=== PATIENT | female | born 1980 | race Caucasian/White ===

== ENCOUNTER 2017-08-24 08:56 | Emergency (ER) | payer SELFPAY ==
[2017-08-24] MEDS ORDERED: 0.9 % SODIUM CHLORIDE 1,000 ML IV ONE (09:04)
[2017-08-24] MEDS ORDERED: KETOROLAC TROMETHAMINE 30 MG/1ML VIAL IVP ONE (09:04)
[2017-08-24] MEDS ORDERED: NALBUPHINE HCL 10 MG/1 ML IVP ONE (09:17)
[2017-08-24 09:47] LABS: APPEARANCE,URINE CLEAR (CLEAR); COLOR,URINE RED (YELLOW)
[2017-08-24 09:48] LABS: OCCULT BLOOD,URINE 3+ (NEGATIVE); PH URINE 5.5 (5.0 - 8.0)
[2017-08-24 09:51] LABS: BASOPHILS % 0.8 (0.0-1.5); EOSINOPHILS % 3.5 % (0.0-6.8); MEAN CORPUSCULAR HEMOGLOBIN 29.4 pg (28.0-34.0); MEAN CORPUSCULAR VOLUME 90.1 fl (80.0-100.0); MONOCYTES % 4.5 % (0.0-11.0); NEUTROPHILS # 5.2 # k/uL (1.4-7.7)
[2017-08-24 10:03] LABS: eGFR (African) > 60; eGFR (Non-African) > 60
[2017-08-24] MEDS ORDERED: BUTORPHANOL TARTRATE 2 MG/ML VIAL IV ONE (11:06)
[2017-08-24] MEDS ORDERED: PHENAZOPYRIDINE HCL 200 MG TABLET PO ONE (12:06)
[2017-08-24] MEDS ORDERED: MAGNESIUM CITRATE 296 ML BOTTLE PO ONE (12:07)
--- NOTE | 2017-08-24 12:07 | ED Physician Documentation ---
Female Urogenital Problems - HISTORIAN Historian: patient - HPI Stated Complaint: flank and LLQ, RLQ pain Chief Complaint: Female Urogenital Problems Further Comments: yes (37 year old female patient presents with complaint of painful urination, bilateral flank pain and blood in urine. Patient reports symptoms started 1 week ago, today patient noticed hematuria. Rates pain 10/ 10. Patient reports she has been off her daily medications for 3 years due to no insurance.) - Associated Symptoms Urinary Symptoms: blood in urine, frequent urination, discomfort w/ urination, burning w/ urination, pain w/ urination Discharge: denies: vaginal discharge - ROS CONST: none GI/: denies: nausea, vomiting, diarrhea CVS/RESP: none EYES/ENT: none NEURO/PSYCH: none MS/SKIN/LYMPH: none - PAST HX Past History: other (bipolar) Other History: other (PTSD, migraines, arthritis, manic depression) Surgeries/Procedures: other (LEEP) Allergies/Adverse Reactions: Allergies Allergy/AdvReac Type Severity Reaction Status Date / Time acetaminophen Allergy Verified 07/06/15 09:56 [From Darvocet-N 100] codeine [Codeine] Allergy Verified 07/06/15 09:56 gabapentin Allergy Verified 07/06/15 09:56 hydrocodone bitartrate Allergy Verified 07/06/15 09:56 [From Vicodin] latex Allergy Verified 07/06/15 09:56 oxycodone HCl [From Percocet] Allergy Verified 07/06/15 09:56 propoxyphene napsylate Allergy Verified 07/06/15 09:56 [From Darvocet-N 100] sumatriptan [From Imitrex] Allergy Verified 07/06/15 09:56 sumatriptan succinate Allergy Verified 07/06/15 09:56 [From Imitrex] aspirin AdvReac Unknown BLEEDING Verified 07/06/15 09:56 ULCER SOAP Allergy Itchy Skin Uncoded 03/08/15 21:50 Home Medications: Ambulatory Orders Medication Instructions Recorded Ciprofloxacin HCl [Cipro] 500 mg PO BID #20 tablet 08/24/17 Phenazopyridine HCl 200 mg PO TID #6 tablet 08/24/17 Promethazine HCl [Phenergan] 25 mg PO Q8H PRN #30 tablet 08/24/17 - SOCIAL HX Smoking History: cigarettes - FAMILY HX Family History: denies: none - VITAL SIGNS Vital Signs: Vital Signs Temp Pulse Resp BP Pulse Ox 96.5 F L 105 H 20 140/55 98 08/24/17 08:57 08/24/17 08:57 08/24/17 08:57 08/24/17 08:57 08/24/17 08:57 - REVIEWED ASSESSMENTS Nursing Assessment Reviewed: Yes Vitals Reviewed: Yes Progress - Progress Progress: Patient reports multiple allergies to multiple narcotics. C/O 10/10 pain and burning with urination. Nubain ordered. 1105 Patient c/o pain worsening - stadol ordered. Zofran given for nausea and vomiting. Patient vomited 300cc water. At discharge patient able to keep down magnesium citrate and pyridium. Reviewed CT results and lab results with patient. Patient states she does not have prescription insurance. Cipro prescribed from $4 list. ED Results Lab/Radiology - Lab Results Lab Results: Lab Results 08/24/17 08/24/17 08/24/17 09:45 09:45 09:45 WBC 8.00 K/ul K/ul (4.00-12.00) RBC 5.03 M/ul M/ul (3.90-5.20) Hgb 14.8 g/dL g/dL (12.0-16.0) Hct 45.3 % % (34.5-46.5) MCV 90.1 fl fl (80.0-100.0) MCH 29.4 pg pg (28.0-34.0) MCHC 32.6 g/dL g/dL (30.0-36.0) RDW 12.6 % % (11.3-14.3) Plt Count 293 K/mm3 K/mm3 (130-400) Neut % (Auto) 64.9 % % (39.0-79.0) Lymph % (Auto) 24.9 % % (16.0-50.0) [place] % (Auto) 4.5 % % (0.0-11.0) Eos % (Auto) 3.5 % % (0.0-6.8) Baso % (Auto) 0.8 (0.0-1.5) Neut # (Auto) 5.2 # k/uL # k/uL (1.4-7.7) Lymph # (Auto) 2.0 # k/uL # k/uL (0.6-4.0) [place] # (Auto) 0.4 # k/uL # k/uL (0.0-0.9) Eos # (Auto) 0.3 # k/uL # k/uL (0.0-0.6) Baso # (Auto) 0.1 # k/uL # k/uL (0.0-0.5) Reactive Lymphs % 1.5 % % (0.0-5.0) Reactive Lymphs # 0.1 # k/uL # k/uL (0.0-0.8) Sodium 138 mmol/L mmol/L (136-145) Potassium 4.0 mmol/L mmol/L (3.5-5.1) Chloride 104 mmol/L mmol/L (98-107) Carbon Dioxide 21 mmol/L L mmol/L (22-30) BUN 12 mg/dL mg/dL (7-17) Creatinine 0.60 mg/dL mg/dL (0.52-1.04) Est GFR ( Amer) > 60 (60 - ) Est GFR (Non-Af Amer) > 60 (60 - ) Glucose 99 mg/dL mg/dL (74-106) Calcium 9.2 mg/dL mg/dL (8.4-10.2) Total Bilirubin 0.7 mg/dL mg/dL (0.2-1.3) AST 24 U/L U/L (15-46) ALT 32 U/L U/L (13-69) Alkaline Phosphatase 42 U/L U/L (38-126) Total Protein 6.9 g/dL g/dL (6.3-8.2) Albumin 4.0 g/dL g/dL (3.5-5.0) Serum HCG, Qual Negative (NEGATIVE) Urine Color Urine Appearance Urine pH Ur Specific [place] Urine Protein Urine Ketones Urine Occult Blood Urine Nitrite Urine Bilirubin Urine Urobilinogen Ur Leukocyte Esterase Urine Glucose 08/24/17 09:05 WBC RBC Hgb Hct MCV MCH MCHC RDW Plt Count Neut % (Auto) Lymph % (Auto) [place] % (Auto) Eos % (Auto) Baso % (Auto) Neut # (Auto) Lymph # (Auto) [place] # (Auto) Eos # (Auto) Baso # (Auto) Reactive Lymphs % Reactive Lymphs # Sodium Potassium Chloride Carbon Dioxide BUN Creatinine Est GFR ( Amer) Est GFR (Non-Af Amer) Glucose Calcium Total Bilirubin AST ALT Alkaline Phosphatase Total Protein Albumin Serum HCG, Qual Urine Color Red (YELLOW) Urine Appearance Clear (CLEAR) Urine pH 5.5 (5.0 - 8.0) Ur Specific [place] >=1.030 H (1.010-1.030) Urine Protein 3+ mg/dL H mg/dL (NEGATIVE) Urine Ketones Trace mg/dL H mg/dL (NEGATIVE) Urine Occult Blood 3+ H (NEGATIVE) Urine Nitrite Negative (NEGATIVE) Urine Bilirubin 2+ H (NEGATIVE) Urine Urobilinogen 1.0 Eu Eu (0.2-1.0) Ur Leukocyte Esterase 3+ H (NEGATIVE) Urine Glucose Negative mg/dL mg/dL (NEGATIVE) - Radiology Radiology Impressions: Examination: CT Abdomen/pelvis History: HEMATURIA X 1 DAY, FLANK PAIN X 1 WEEK (Hx) / HEMATURIA, FLANK PAIN ( DICOM Hx) Comparison exams: None available Technique: CT Abdomen/pelvis without contrast protocol. Findings: Renal cortical margins are symmetric. No cortical or calyceal calcification. Ureters described a normal course through the abdomen and pelvis. No abnormal dilation of the right ureter. No central calcifications. Mild prominence of the left ureter in its course through the abdomen and pelvis. Suggestion for a 1 mm calcification in the tract of the ureter within the lower pelvis region. Ureterovesicular junctions are within normal limits. Pelvic phleboliths. Liver, spleen, adrenals, gallbladder and pancreas are without gross irregularity given exam technique. No gallstone. Mild atherosclerotic disease involving the abdominal aorta. No evidence for aneurysm. Cardiac silhouette is not enlarged. No pericardial effusion. Bowel unopacified limiting evaluation. No mesenteric inflammatory changes or free fluid. No abnormal bowel dilation. Stool throughout the large bowel limiting sensitivity. Appendix is visualized and is within normal limits. Mildly prominent ovaries. Osseous structures are appropriate for age. Lung bases demonstrate posterior scarring and atelectasis. Mild groundglass interstitial pattern. No effusion. Impression: Mild prominence of the left ureter with suggestion for a 1 mm distal ureteral calcification - possible mildly obstructing distal ureterolithiasis. Findings can be confirmed with postcontrast imaging with delayed imaging of the ureters if clinically warranted. Significant large bowel stool - constipation. No gallstone. Lung base scarring/atelectasis. Nonspecific ground glass interstitial pattern. No effusion. Electronically signed on Aug 24, 2017 11:23:31 AM SOIL SCIENCE TECHNICAL OFFICER by: Noel Carrasquillo - Orders Orders: ED Orders Category Date Time Status Place IV Lock 1T Care 08/24/17 09:04 Active RENAL STONE PROTOCOL [CT ABD & PELVIS W/O CON] Stat Exams 08/24/17 Taken CBC/PLATELET/DIFF Stat Lab 08/24/17 09:45 Completed CMP Stat Lab 08/24/17 09:45 Completed SERUM HCG Stat Lab 08/24/17 09:45 Completed UA MACRO DIP ONLY Stat Lab 08/24/17 09:05 Completed URINE CULTURE Stat Lab 08/24/17 09:05 Received 0.9 % Sodium Chloride [Normal Saline] 1,000 ml Med 08/24/17 09:04 Discontinued IV NOW Butorphanol Tartrate [Stadol] Med 08/24/17 11:06 Discontinued 1 mg IV NOW ONE Ketorolac Tromethamine [Toradol] Med 08/24/17 09:04 Discontinued 30 mg IVP NOW ONE Nalbuphine HCl [Nubain] Med 08/24/17 09:17 Discontinued 10 mg IVP NOW ONE Female Urogenital Problems - EXAM General Appearance: moderate distress EENT: eye inspection normal, ENT inspection normal, pharynx normal, no signs of dehydration, IRLANDA, no nystagmus, TM's nml Respiratory: no resp. distress, breath sounds nml CVS: reg rate & rhythm, heart sounds normal, equal pulses, no murmur, no gallop , PMI nml, no JVD, no friction rub, 24 Abdomen: nml bowel sounds, tenderness (suprapubic), other (soft) Back: CVA tenderness (bilateral) Skin: color nml, no rash, warm,dry Extremities: non-tender, normal range of motion, no evidence of injury, no edema , J, INSIDE TESTER Neuro: oriented X3, CN's nml as tested, motor nml, sensation nml, mood/affect nml Discharge Clincal Impression: Dysuria, Renal calculus, left UTI (urinary tract infection) Qualifiers: Urinary tract infection type: acute cystitis Hematuria presence: with hematuria Qualified Code(s): N30.01 - Acute cystitis with hematuria Nausea & vomiting Qualifiers: Vomiting type: unspecified Vomiting Intractability: non-intractable Qualified Code(s): R11.2 - Nausea with vomiting, unspecified Constipation Qualifiers: Constipation type: unspecified constipation type Qualified Code(s): K59.00 - Constipation, unspecified Prescriptions: Ciprofloxacin HCl [Cipro] 500 mg PO BID #20 tablet Phenazopyridine HCl 200 mg PO TID #6 tablet Promethazine HCl [Phenergan] 25 mg PO Q8H PRN #30 tablet PRN Reason: Nausea / Vomiting Referrals: Primary Doctor,No [Primary Care Provider] - 2 Days Additional Instructions: merchandise supervisor your prescriptions and start it today - 1. Cipro - antibiotic $4 2. Pyridium - pain medicine for the bladder 3. Phenergan - $4, use as needed for nausea and vomiting Drink at least 64 oz of water daily. Avoid caffeinated beverages Cranberry juice will help with symptoms. Tylenol every 4 hours as needed for pain/fever or ibuprofen every 6 hours as needed for pain and fever See your primary care provider for a repeat UA 48 hours after completing your antibiotic. Condition: Stable Disposition: 01 HOME, SELF-CARE Decision to Admit: NO Decision Time: 12:21
[2017-08-24] MEDS ORDERED: ONDANSETRON HCL/PF 4 MG/ 2ML VIAL ONE (12:17)
[2017-08-24] MEDS ORDERED: ONDANSETRON HCL/PF 4 MG/ 2ML VIAL IVP ONE (12:17)
[2017-08-24] MEDS ORDERED: 0.9 % SODIUM CHLORIDE 100 ML IV ONE (12:30)
[2017-08-24 13:11] VITALS: BP 113/65
--- NOTE | 2017-08-24 15:29 | Diagnostic Imaging Report ---
STEPH FISHER (SAUSAGE INSPECTOR) - ER [facility] [id number] [facility] [address] [place], [place]. [address] Report Submission Date: Aug 24, 2017 11:23:31 AM PORTER LUGGAGE Patient Study Name: CHAVEZ CASTRO Date: Aug 24, 2017 10:35:26 AM PORTER LUGGAGE Modality Type: CT\SR Gender: F Description: CT ABD & PELVIS W/O CO : 80 Institution: [facility] Physician: STEPH FISHER (NAZAR[place]) - ER Examination: CT Abdomen/pelvis History: HEMATURIA X 1 DAY, FLANK PAIN X 1 WEEK (Hx) / HEMATURIA, FLANK PAIN ( DICOM Hx) Comparison exams: None available Technique: CT Abdomen/pelvis without contrast protocol. Findings: Renal cortical margins are symmetric. No cortical or calyceal calcification. Ureters described a normal course through the abdomen and pelvis. No abnormal dilation of the right ureter. No central calcifications. Mild prominence of the left ureter in its course through the abdomen and pelvis. Suggestion for a 1 mm calcification in the tract of the ureter within the lower pelvis region. Ureterovesicular junctions are within normal limits. Pelvic phleboliths. Liver, spleen, adrenals, gallbladder and pancreas are without gross irregularity given exam technique. No gallstone. Mild atherosclerotic disease involving the abdominal aorta. No evidence for aneurysm. Cardiac silhouette is not enlarged. No pericardial effusion. Bowel unopacified limiting evaluation. No mesenteric inflammatory changes or free fluid. No abnormal bowel dilation. Stool throughout the large bowel limiting sensitivity. Appendix is visualized and is within normal limits. Mildly prominent ovaries. Osseous structures are appropriate for age. Lung bases demonstrate posterior scarring and atelectasis. Mild groundglass interstitial pattern. No effusion. Impression: Mild prominence of the left ureter with suggestion for a 1 mm distal ureteral calcification - possible mildly obstructing distal ureterolithiasis. Findings can be confirmed with postcontrast imaging with delayed imaging of the ureters if clinically warranted. Significant large bowel stool - constipation. No gallstone. Lung base scarring/atelectasis. Nonspecific ground glass interstitial pattern. No effusion. Electronically signed on Aug 24, 2017 11:23:31 AM PORTER LUGGAGE by: Noel AUGUSTINE
== END 2017-08-24 13:06 | disposition home or self-care (01) ==
LOC: ED 08:56
DX: N30.01 Acute cystitis with hematuria (principal); R11.2 Nausea with vomiting, unspecified; K59.00 Constipation, unspecified
CPT/HCPCS: 36415; 74176; 80053; 81002; 84703; 85025; 87086; 87186; J0595; J0696; J1885; J2300; J2405; J7030; 96365; 96375; 99283; S1016